=== PATIENT | female | born 1950 | race Caucasian/White ===

== ENCOUNTER 2022-03-03 13:39 | Observation (INO) ==
[2022-03-03] MEDS ORDERED: PIPERACILLIN SODIUM/TAZOBACTAM 3.375 GM in DEXTROSE 5% IN WATER 50 ML IV ONE (14:47)
[2022-03-03] MEDS ORDERED: morphine 4 MG/ML VIAL IV PRN (14:48)
[2022-03-03 14:56] LABS: POC Calcium, Ionized 1.2 (1.16-1.32); POC Creatinine 0.7 (0.6-1.2); POC Potassium 3.3 (3.3-5.1)
--- NOTE | 2022-03-03 15:10 | Emergency Department Note ---
Abdominal Pain HPI General Chief Complaint: Abdominal Pain Stated Complaint: Belly bloating Time Seen by Provider: 03/03/22 14:01 Source: patient Mode of arrival: ambulatory History of Present Illness HPI Narrative: 71-year-old female with known cholecystitis presents for worsening abdominal pain and bloating. She was seen by Dr. Jones in his office on 02/27 and they reviewed a HIDA scan which showed no uptake in the gallbladder consistent with cholecystitis. She was placed on ciprofloxacin twice daily and was scheduled for an outpatient laparoscopic cholecystectomy Thursday. Unfortunately, she has been experiencing more pain so came into the ER for urgent evaluation she denies fevers or chills. She denies nausea or vomiting. She endorses frequent urination but no dysuria or hematuria. She does have worsening pain radiating into her back and in the right upper quadrant. Related Data Home Medications Medication Instructions Recorded Confirmed atenolol 50 mg tablet (Tenormin) 50 mg PO BID 08/11/16 03/03/22 losartan 100 1 ea PO DAILY 08/11/16 03/03/22 mg-hydrochlorothiazide 25 mg tablet montelukast 10 mg tablet 10 mg PO DAILY 08/11/16 03/03/22 (Singulair) simvastatin 20 mg tablet 20 mg PO DAILY 08/11/16 03/03/22 albuterol sulfate 90 mcg/actuation 1 inh inhalation ONCE 02/27/22 03/03/22 aerosol inhaler biotin 1 mg capsule 1 mg PO QDAY 02/27/22 03/03/22 citalopram 20 mg tablet 20 mg PO QDAY 02/27/22 03/03/22 dicyclomine 20 mg tablet 20 mg PO .COMPLEX 02/27/22 03/03/22 diphenhydramine 25 See Rx Instructions PO QHS PRN 02/27/22 03/03/22 mg-acetaminophen 500 mg tablet Sleep (Tylenol PM Extra Strength) fexofenadine 180 mg tablet 180 mg PO QDAY 02/27/22 03/03/22 fluorouracil 5 % topical cream 1 applic topical BID 02/27/22 03/03/22 fluticasone propionate 50 1 spray intranasal QDAY 02/27/22 03/03/22 mcg/actuation nasal spray,suspension latanoprost 0.005 % eye drops 1 drp ophthalmic (eye) BID 02/27/22 03/03/22 lorazepam 0.5 mg tablet (Ativan) 0.5 mg PO QDAY PRN Anxiety 02/27/22 03/03/22 timolol maleate 0.5 % eye drops 1 drp ophthalmic (eye) QDAY 02/27/22 03/03/22 triamcinolone acetonide 0.1 % 1 applic topical QDAY PRN breakout 02/27/22 03/03/22 topical cream Previous Rx's Medication Instructions Recorded ciprofloxacin HCl 500 mg tablet 500 mg PO BID #20 tabs 02/27/22 ciprofloxacin HCl 500 mg tablet 500 mg PO BID Cholecystitis #20 02/27/22 tabs oxycodone-acetaminophen 10 mg-325 1 tab PO Q6H Abdominal pain #30 02/27/22 mg tablet tabs oxycodone-acetaminophen 10 mg-325 1 tab PO Q6H PRN pain #30 tabs 02/27/22 mg tablet Allergies Allergy/AdvReac Type Severity Reaction Status Date / Time adhesive tape Allergy Mild Hives Verified 03/03/22 14:16 Review of Systems ROS ROS Narrative: Narrative: All systems ED: reviewed and negative except as stated. [facility] Narrative Patient History Narrative: Narrative: Medical/Surgical/Family History All Active Problems (Updated 03/03/22 @ 21:07 by Brianne Lynch PA-C) Acute cholecystitis (Acute) Cholelithiasis and cholecystitis without obstruction (Acute) Allergic rhinitis (Chronic) Degenerative joint disease (Chronic) Obesity (Chronic) Depression (Chronic) Anxiety (Chronic) Asthma (Chronic) Insomnia (Chronic) Cervical lymphadenopathy (Chronic) Carcinoma, basal cell, skin (Chronic) Gallbladder attack (Chronic) Vomiting (Chronic) Sleep apnea (Chronic) IBS (irritable bowel syndrome) (Chronic) Irregular bowel habits (Chronic) High cholesterol (Chronic) High blood pressure (Chronic) Diarrhea (Chronic) Constipation (Chronic) Arthritis (Chronic) Abdominal pain (Chronic) Medical History Abdominal pain Allergic rhinitis Anxiety Arthritis Asthma Carcinoma, basal cell, skin Cervical lymphadenopathy Constipation Degenerative joint disease Depression Diarrhea Gallbladder attack High blood pressure High cholesterol History of trigger finger 2020 IBS (irritable bowel syndrome) Insomnia Irregular bowel habits Obesity Sleep apnea Vomiting Surgical History History of arthroplasty of right knee History of x2 History of hysterectomy (~1977) with bilateral salpingo-oophorectomy History of joint replacement (~2013) 2006 History of shoulder replacement (~1986) 2020 Family History Brother High blood pressure Anxiety Mother High blood pressure Gallbladder disease Malignant melanoma Thyroid disease Father Prostate cancer Family/Other Hodgkins lymphoma Social History Smoking Status: Never smoker Alcohol Intake Frequency: does not drink Substance Use: does not use Exam Narrative Narrative: General: AOx3, NAD, nontoxic appearing. Pleasant and conversant. HEENT: PERRL, EOMI, normocephalic. Respiratory: Lungs clear to auscultation bilaterally. No respiratory distress. Unlabored breathing. Heart: Regular rate and rhythm, no murmurs/clicks/rubs. Abdomen: Mildly distended, diffusely tender, no rebound noted. Hypoactive bowel tones, no peritoneal signs. Extremities: Warm and well perfused. No edema. DP 2+ bilaterally. No venous stasis. Neuro: No focal deficits. Cranial nerves II-XII grossly normal. Skin: Warm dry, no rashes or lesions, no cyanosis. Psych: Normal mood and affect Heme/Lymph: No abnormal bruising Course Course Course Narrative: 71-year-old female presents for known cholecystitis with outpatient cholecystectomy planned. Now with worsening abdominal pain and bloating. Reevaluation(s) Reevaluation #1: I discussed case with Dr. Jones. He does not feel that further imaging is warranted and would like to take her to the OR today if possible. I am waiting for the halfway house counselor to let me know if there is a bed available. In the meantime we will start her on IV Zosyn and obtain repeat labs. Blood cultures as well. Pain meds and IV fluids. Vital Signs Vital signs: Vital Signs Temperature 98.0 F 03/03/22 14:11 Pulse Rate 64 03/03/22 14:11 Respiratory Rate 16 03/03/22 14:11 Blood Pressure 156/79 03/03/22 14:11 Pulse Oximetry (%) 94 03/03/22 14:11 Oxygen Delivery Method 03/03/22 14:11 Temperature 98.0 F 03/03/22 14:11 Pulse Rate 70 03/03/22 20:01 Respiratory Rate 16 03/03/22 14:11 Blood Pressure 115/60 03/03/22 20:01 Pulse Oximetry (%) 91 03/03/22 20:01 Oxygen Delivery Method 03/03/22 14:11 MDM MDM Narrative Medical decision making narrative: Cholecystitis Dr. Jones has seen the patient and is planning for cholecystectomy tomorrow. The patient will remain in the ER overnight as a bed is not available. Lab Data Result diagrams: 03/03/22 14:50 03/03/22 14:50 Labs: Lab Results 03/03/22 03/03/22 03/03/22 Range/Units 14:50 14:50 14:51 WBC 5.7 (4.5-11.0) K/mcL RBC 4.03 (3.59-5.38) M/mcL Hgb 12.7 (11.2-15.7) g/dL Hct 37.4 (34.1-44.9) % POC Hct 36.0 (36-48) MCV 92.8 (80.0-100.0) fL MCH 31.5 (26.0-34.0) pg MCHC 34.0 (31.0-36.0) g/dL RDW 12.7 (11.5-14.5) % Plt Count 223 (140-440) K/mcL MPV 11.6 H (7.4-10.4) fL Immature Gran % (Auto) 0.2 (0.0-0.5) % Neut % (Auto) 41.6 (38.0-78.0) % Lymph % (Auto) 41.8 (15.5-49.0) % Hawkins % (Auto) 12.0 (1.0-12.0) % Eos % (Auto) 3.3 (0.0-7.0) % Baso % (Auto) 1.1 (0.0-2.0) % Lymph # (Auto) 2.38 (1.50-4.80) K/mcL Hawkins # (Auto) 0.68 (0.10-0.90) K/mcL Eos # (Auto) 0.19 (0.00-0.70) K/mcL Baso # (Auto) 0.06 (0.00-0.30) K/mcL Immature Gran # 0.01 (0.00-0.05) K/mcl Absolute Neutrophils 2.37 (1.80-8.00) K/mcL POC VBG pH (7.32-7.42) POC VBG pCO2 at Temp (41-51) POC VBG pO2 (25-40) POC VBG HCO3 (24-28) POC VBG Total CO2 (25-29) POC Venous O2 Sat (40-70) POC VBG Base Excess (-2-2) VBG Lactic Acid (0.5-2) POC Sodium 143 (133-145) Sodium 141 (133-145) mmol/L POC Potassium 3.3 (3.3-5.1) Potassium 3.5 (3.3-5.1) mmol/L POC Chloride 105 (96-108) Chloride 105 (96-108) mmol/L Carbon Dioxide 26 (22-30) mmol/L POC Total CO2 28.0 (22-30) Anion Gap 10.0 (8.0-16.0) POC BUN 9 (6-20) BUN 9 (8-23) mg/dL Creatinine 0.6 (0.6-1.1) mg/dL POC Creatinine 0.7 (0.6-1.2) GFR Calculation 92 Glucose 100 (70-105) mg/dL POC Glucose 99 (70-105) Calcium 9.2 (8.6-10.4) mg/dL POC WB Ioniz Calcium 1.20 (1.16-1.32) Total Bilirubin 0.4 (0.1-1.0) mg/dL AST 19 (<32) U/L ALT 20 (<40) U/L Alkaline Phosphatase 55 (39-117) U/L Total Protein 6.6 (5.9-8.4) gm/dL Albumin 4.4 (3.2-5.2) gm/dL Globulin 2.2 (2.2-3.7) gm/dL Albumin/Globulin Ratio 2.0 (1.0-2.3) 03/03/22 Range/Units 14:55 WBC (4.5-11.0) K/mcL RBC (3.59-5.38) M/mcL Hgb (11.2-15.7) g/dL Hct (34.1-44.9) % POC Hct (36-48) MCV (80.0-100.0) fL MCH (26.0-34.0) pg MCHC (31.0-36.0) g/dL RDW (11.5-14.5) % Plt Count (140-440) K/mcL MPV (7.4-10.4) fL Immature Gran % (Auto) (0.0-0.5) % Neut % (Auto) (38.0-78.0) % Lymph % (Auto) (15.5-49.0) % Hawkins % (Auto) (1.0-12.0) % Eos % (Auto) (0.0-7.0) % Baso % (Auto) (0.0-2.0) % Lymph # (Auto) (1.50-4.80) K/mcL Hawkins # (Auto) (0.10-0.90) K/mcL Eos # (Auto) (0.00-0.70) K/mcL Baso # (Auto) (0.00-0.30) K/mcL Immature Gran # (0.00-0.05) K/mcl Absolute Neutrophils (1.80-8.00) K/mcL POC VBG pH 7.40 (7.32-7.42) POC VBG pCO2 at Temp 46.5 (41-51) POC VBG pO2 48 H (25-40) POC VBG HCO3 29.0 H (24-28) POC VBG Total CO2 30.0 H (25-29) POC Venous O2 Sat 83.0 H (40-70) POC VBG Base Excess 4.0 H* (-2-2) VBG Lactic Acid 0.9 (0.5-2) POC Sodium (133-145) Sodium (133-145) mmol/L POC Potassium (3.3-5.1) Potassium (3.3-5.1) mmol/L POC Chloride (96-108) Chloride (96-108) mmol/L Carbon Dioxide (22-30) mmol/L POC Total CO2 (22-30) Anion Gap (8.0-16.0) POC BUN (6-20) BUN (8-23) mg/dL Creatinine (0.6-1.1) mg/dL POC Creatinine (0.6-1.2) GFR Calculation Glucose (70-105) mg/dL POC Glucose (70-105) Calcium (8.6-10.4) mg/dL POC WB Ioniz Calcium (1.16-1.32) Total Bilirubin (0.1-1.0) mg/dL AST (<32) U/L ALT (<40) U/L Alkaline Phosphatase (39-117) U/L Total Protein (5.9-8.4) gm/dL Albumin (3.2-5.2) gm/dL Globulin (2.2-3.7) gm/dL Albumin/Globulin Ratio (1.0-2.3) Discharge Plan Patient/Caregiver Discharge Instructions Pt seen by [facility] [employer]INER AND ADJUSTER/PA only: Yes Clinical Impression: Acute cholecystitis Patient Disposition: Still a Patient Follow up with: Stanford Perez MD [Primary Care Provider] - Prescriptions: No Action albuterol sulfate 90 mcg/actuation HFA aerosol inhaler 1 inh inhalation ONCE biotin 1 mg capsule 1 mg PO QDAY Rx Instructions: orally daily; dicyclomine 20 mg tablet 20 mg PO .COMPLEX Rx Instructions: 20 mg orally; diphenhydramine-acetaminophen [Tylenol PM Extra Strength] 25-500 mg tablet See Rx Instructions PO QHS PRN (Reason: Sleep) Rx Instructions: orally every day at bedtime PRN; fluorouracil 5 % cream 1 applic topical BID fexofenadine 180 mg tablet 180 mg PO QDAY fluticasone propionate 50 mcg/actuation spray,suspension 1 spray intranasal QDAY Rx Instructions: administer into each nostril lorazepam [Ativan] 0.5 mg tablet 0.5 mg PO QDAY PRN (Reason: Anxiety) latanoprost 0.005 % drops 1 drp ophthalmic (eye) BID Label Comments: [NO ORIGINAL SIG] triamcinolone acetonide 0.1 % cream 1 applic topical QDAY PRN (Reason: breakout) Label Comments: [NO ORIGINAL SIG] citalopram 20 mg tablet 20 mg PO QDAY Label Comments: [NO ORIGINAL SIG] timolol maleate 0.5 % drops 1 drp ophthalmic (eye) QDAY Label Comments: [NO ORIGINAL SIG] ciprofloxacin HCl 500 mg tablet 500 mg PO BID Qty: 20 0RF oxycodone-acetaminophen 10-325 mg tablet 1 tab PO Q6H Qty: 30 0RF ciprofloxacin HCl 500 mg tablet 500 mg PO BID Qty: 20 0RF oxycodone-acetaminophen 10-325 mg tablet 1 tab PO Q6H PRN (Reason: pain) Qty: 30 0RF losartan-hydrochlorothiazide 1 EACH tablet 1 ea PO DAILY simvastatin 20 MG tablet 20 mg PO DAILY montelukast [Singulair] 10 MG tablet 10 mg PO DAILY atenolol [Tenormin] 50 MG tablet 50 mg PO BID
[2022-03-03 15:38] LABS: Basophils # (Auto) 0.06 K/mcL (0.00-0.30); Basophils % (Auto) 1.1 % (0.0-2.0); Eosinophils # (Auto) 0.19 K/mcL (0.00-0.70); Eosinophils % (Auto) 3.3 % (0.0-7.0); Hematocrit 37.4 % (34.1-44.9); Hemoglobin 12.7 g/dL (11.2-15.7); Lymphocytes # (Auto) 2.38 K/mcL (1.50-4.80); Lymphocytes % (Auto) 41.8 % (15.5-49.0); Mean Cell Volume 92.8 fL (80.0-100.0); Mean Platelet Volume 11.6 fL (7.4-10.4); Monocytes # (Auto) 0.68 K/mcL (0.10-0.90); Neutrophils % (Auto) 41.6 % (38.0-78.0); Platelet Count 223 K/mcL (140-440); RBC 4.03 M/mcL (3.59-5.38); Red Cell Distribution Width 12.7 % (11.5-14.5); WBC 5.7 K/mcL (4.5-11.0)
[2022-03-03 16:16] LABS: ALT/SGPT 20 U/L (<40); AST/SGOT 19 U/L (<32); Albumin 4.4 gm/dL (3.2-5.2); Alkaline Phosphatase 55 U/L (39-117); Bilirubin,Total 0.4 mg/dL (0.1-1.0); Blood Urea Nitrogen 9 mg/dL (8-23); Calcium 9.2 mg/dL (8.6-10.4); Carbon Dioxide 26 mmol/L (22-30); Chloride 105 mmol/L (96-108); Globulin 2.2 gm/dL (2.2-3.7); Glomerular Filtration Rate 92; Glucose 100 mg/dL (70-105)
[2022-03-03] MEDS: 0.9 % SODIUM CHLORIDE 1,000 ML IV SCH (17:48)
[2022-03-03] MEDS: HYDROmorphone 1 MG/ML SYRINGE IV PRN ×2 (18:48→23:30)
[2022-03-03] MEDS: PIPERACILLIN SODIUM/TAZOBACTAM 3.375 GM in DEXTROSE 5% IN WATER 50 ML IV SCH (19:10)
[2022-03-03] MEDS: ATENOLOL 50 MG TABLET PO SCH (21:32)
[2022-03-03] MEDS: diphenhydrAMINE 50 MG/ML VIAL IV SCH (22:48)
[2022-03-04] MEDS: PIPERACILLIN SODIUM/TAZOBACTAM 3.375 GM in DEXTROSE 5% IN WATER 50 ML IV SCH ×5 (00:22→23:40)
[2022-03-04] MEDS: HYDROmorphone 1 MG/ML SYRINGE IV PRN ×2 (07:10→14:14)
[2022-03-04] MEDS ORDERED: PROPOFOL 200 MG/20 ML VIAL IV ONE (07:27)
[2022-03-04] MEDS ORDERED: FAMOTIDINE/PF 20 MG/2 ML VIAL IV ONE (07:27)
[2022-03-04] MEDS ORDERED: SUGAMMADEX SODIUM 200 MG/2 ML VIAL IV ONE (07:27)
[2022-03-04] MEDS ORDERED: LIDOCAINE HCL/PF 100 MG/5 ML SYRINGE IV ONE (07:27)
[2022-03-04] MEDS ORDERED: ROCURONIUM 10 MG/ML ML IV ONE (07:27)
[2022-03-04] MEDS ORDERED: fentaNYL 100 MCG/2 ML VIAL IV ONE (07:27)
[2022-03-04] MEDS ORDERED: GLYCOPYRROLATE 0.2 MG/ML VIAL IV ONE (07:27)
[2022-03-04] MEDS ORDERED: MIDAZOLAM 2 MG/2 ML VIAL ONE (07:27)
[2022-03-04] MEDS ORDERED: KETOROLAC 30 MG/ML VIAL ONE (07:27)
[2022-03-04] MEDS ORDERED: ONDANSETRON 4 MG/2 ML VIAL ONE (07:27)
[2022-03-04] MEDS: 0.9 % SODIUM CHLORIDE 1,000 ML IV SCH ×3 (07:53→23:41)
[2022-03-04] MEDS ORDERED: ONDANSETRON 4 MG/2 ML VIAL IV PRN (08:30)
[2022-03-04] MEDS: ATENOLOL 50 MG TABLET PO SCH ×2 (09:50→20:44)
[2022-03-04] MEDS: DOCUSATE SODIUM 100 MG CAPSULE PO SCH ×2 (09:50→20:45)
[2022-03-04] MEDS: CITALOPRAM 20 MG TABLET PO SCH (09:50)
[2022-03-04] MEDS: BUTALB/ACETAMINOPHEN/CAFFEINE 1 TABLET PO PRN ×2 (11:01→20:44)
--- NOTE | 2022-03-04 14:12 | General Surg History&Physical ---
HPI History of Present Illness Patient information: Note initiated : 03/04/22 at 1:58 pm Service Date, if different from initiated Date: [] Patient: Melissa Ramey a 71 y/o F admitted on 03/04/22 for Belly bloating. Chief Complaint: [] Chief complaint: Acute cholecystitis with cholelithiasis History of present illness: Ms. Ramey is a 71 year old F with known gallstone disease. Patient was seen in the office on 28 February 2020 with a 3-month history of right upper quadrant pain radiating through to her back. She had associated nausea and vomiting. Most of her symptoms occurred after eating. She also had multiple episodes of diarrhea. She was noted to have multiple gallstones on ultrasound and no gallbladder activity on HIDA scan. She was felt to have acute and chronic cholecystitis and was scheduled for laparoscopic cholecystectomy on 05 March 2022. She was started on ciprofloxacin but her symptoms had rapidly increased and she presented to the emergency room last evening with more severe pain with nausea and vomiting.. She was to be admitted but there were no beds so she was monitored and treated overnight in the emergency room and admitted today after a bed became available. She states that her pain is improved with the analgesia. She has had less nausea but has received Zofran and IV. She still has significant right upper quadrant tenderness. She will be continued on IV antibiotics analgesics and antiemetics. She will have cholecystectomy tomorrow when space is available. Constitutional Constitutional: Present chills, excessive sweating, night sweats, weakness and weight loss EENT Eyes: Absent blurry vision, diplopia, irritation or loss of vision Nose, mouth and throat: Absent dizziness, headache(s), neck pain or vertigo Cardiovascular Cardiovascular: Present dyspnea; Absent chest pain, irregular heart rhythm, leg edema or rapid heart rate Respiratory Respiratory: Present cough, dyspnea on exertion and wheezing Gastrointestinal Gastrointestinal: Present abdominal pain, constipation, diarrhea, dyspepsia, heartburn, nausea and vomiting Genitourinary Genitourinary: Absent breast change in shape, difficulty voiding, urinary frequency or urinary urgency Musculoskeletal Musculoskeletal: Absent numbness, radiating pain into limb or tingling Integumentary Integumentary: Absent changing lesions, new lesions, pruritus or unusual bruising Neurological Neurological: Present dizziness and headache(s) Psychiatric Psychiatric: Present anxiety and depression Endocrine Endocrine: Present excessive sweating and heat intolerance Hematologic/Lymphatic Hematologic/Lymphatic: Absent easy bleeding, easy bruising or lymphadenopathy Allergic/Immunologic Allergic/Immunologic: Absent tongue swelling, throat swelling, itchy eyes, uticaria, wheezing or lip swelling PFSH PFSH All Active Problems Acute cholecystitis (Acute) Cholelithiasis and cholecystitis without obstruction (Acute) Allergic rhinitis (Chronic) Degenerative joint disease (Chronic) Obesity (Chronic) Depression (Chronic) Anxiety (Chronic) Asthma (Chronic) Insomnia (Chronic) Cervical lymphadenopathy (Chronic) Carcinoma, basal cell, skin (Chronic) Gallbladder attack (Chronic) Vomiting (Chronic) Sleep apnea (Chronic) IBS (irritable bowel syndrome) (Chronic) Irregular bowel habits (Chronic) High cholesterol (Chronic) High blood pressure (Chronic) Diarrhea (Chronic) Constipation (Chronic) Arthritis (Chronic) Abdominal pain (Chronic) Medical History Abdominal pain Allergic rhinitis Anxiety Arthritis Asthma Carcinoma, basal cell, skin Cervical lymphadenopathy Constipation Degenerative joint disease Depression Diarrhea Gallbladder attack High blood pressure High cholesterol History of trigger finger 2019 IBS (irritable bowel syndrome) Insomnia Irregular bowel habits Obesity Sleep apnea Vomiting Surgical History History of arthroplasty of right knee History of x2 History of hysterectomy (~1977) with bilateral salpingo-oophorectomy History of joint replacement (~2013) 2006 History of shoulder replacement (~1986) 2020 Family History Brother High blood pressure Anxiety Mother High blood pressure Gallbladder disease Malignant melanoma Thyroid disease Father Prostate cancer Family/Other Hodgkins lymphoma Social History occupational 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[employer] physical activity: walking frequency: 3-4 times per week smoking status: Never smoker alcohol intake frequency: does not drink substance use type: does not use seatbelt use: always MEDS/ALLERGIES Home Medications and Allergies Home Medications Medication Instructions Recorded Confirmed Type atenolol 50 mg tablet (Tenormin) 50 mg PO BID 08/11/16 03/03/22 History losartan 100 1 ea PO DAILY 08/11/16 03/03/22 History mg-hydrochlorothiazide 25 mg tablet montelukast 10 mg tablet 10 mg PO DAILY 08/11/16 03/03/22 History (Singulair) simvastatin 20 mg tablet 20 mg PO DAILY 08/11/16 03/03/22 History albuterol sulfate 90 mcg/actuation 1 inh inhalation ONCE 02/27/22 03/03/22 History aerosol inhaler biotin 1 mg capsule 1 mg PO QDAY 02/27/22 03/03/22 History ciprofloxacin HCl 500 mg tablet 500 mg PO BID #20 tabs 02/27/22 03/03/22 Rx ciprofloxacin HCl 500 mg tablet 500 mg PO BID Cholecystitis #20 02/27/22 03/03/22 Rx tabs citalopram 20 mg tablet 20 mg PO QDAY 02/27/22 03/03/22 History dicyclomine 20 mg tablet 20 mg PO .COMPLEX 02/27/22 03/03/22 History diphenhydramine 25 See Rx Instructions PO QHS PRN 02/27/22 03/03/22 History mg-acetaminophen 500 mg tablet Sleep (Tylenol PM Extra Strength) fexofenadine 180 mg tablet 180 mg PO QDAY 02/27/22 03/03/22 History fluorouracil 5 % topical cream 1 applic topical BID 02/27/22 03/03/22 History fluticasone propionate 50 1 spray intranasal QDAY 02/27/22 03/03/22 History mcg/actuation nasal spray,suspension latanoprost 0.005 % eye drops 1 drp ophthalmic (eye) BID 02/27/22 03/03/22 History lorazepam 0.5 mg tablet (Ativan) 0.5 mg PO QDAY PRN Anxiety 02/27/22 03/03/22 History oxycodone-acetaminophen 10 mg-325 1 tab PO Q6H Abdominal pain #30 02/27/22 03/03/22 Rx mg tablet tabs oxycodone-acetaminophen 10 mg-325 1 tab PO Q6H PRN pain #30 tabs 02/27/22 03/03/22 Rx mg tablet timolol maleate 0.5 % eye drops 1 drp ophthalmic (eye) QDAY 02/27/22 03/03/22 History triamcinolone acetonide 0.1 % 1 applic topical QDAY PRN breakout 02/27/22 03/03/22 History topical cream Allergies Allergy/AdvReac Type Severity Reaction Status Date / Time adhesive tape Allergy Mild Hives Verified 03/03/22 14:16 Physical Examination Vital Signs Vital signs: Temp Pulse Resp BP Pulse Ox O2 Del Method 98.8 F 58 L 16 151/76 97 03/04/22 12:00 03/04/22 10:05 03/04/22 10:05 03/04/22 10:05 03/04/22 10:05 03/04/22 10:05 General physical appearance General physical exam: well developed, well nourished, moderate distress and severe pain Eyes Eye exam: PERRL and normal ocular movement ENT ENT exam: normal mucosa and decreased hearing (Severe hearing loss bilaterally) Head Head exam IM: Present atraumatic, normal inspection and normocephalic Neck Neck exam: no masses, no bruits, trachea midline, no lymphadenopathy and no venous distension Cardiovascular Cardiovascular exam IM: Present normal rate and rhythm, RRR, +S1 and +S2; Absent JVD Respiratory Respiratory exam: normal expansion, normal respiratory effort and clear to auscultation Abdomen Abdomen: Present tender (Right upper quad and epigastric), guarding, rebound and distended Integumentary Integumentary: Present no rash, no growths and no abnormal pigmentation Neurologic Neurologic: Present normal sensation Musculoskeletal Musculoskeletal: Present normal gait and normal posture Psychiatric Psychiatric: Present oriented to time, oriented to person, oriented to place, speech is normal and memory intact Results Labs Result diagrams: 03/03/22 14:50 03/03/22 14:50 Labs: Abnormal lab results 03/03/22 03/03/22 Range/Units 14:50 14:55 MPV 11.6 H (7.4-10.4) fL POC VBG pO2 48 H (25-40) POC VBG HCO3 29.0 H (24-28) POC VBG Total CO2 30.0 H (25-29) POC Venous O2 Sat 83.0 H (40-70) POC VBG Base Excess 4.0 H* (-2-2) Diabetes panel 03/03/22 Range/Units 14:50 Sodium 141 (133-145) mmol/L Potassium 3.5 (3.3-5.1) mmol/L Chloride 105 (96-108) mmol/L Carbon Dioxide 26 (22-30) mmol/L BUN 9 (8-23) mg/dL Creatinine 0.6 (0.6-1.1) mg/dL Glucose 100 (70-105) mg/dL Calcium 9.2 (8.6-10.4) mg/dL AST 19 (<32) U/L ALT 20 (<40) U/L Alkaline Phosphatase 55 (39-117) U/L Total Protein 6.6 (5.9-8.4) gm/dL Albumin 4.4 (3.2-5.2) gm/dL Calcium panel 03/03/22 Range/Units 14:50 Calcium 9.2 (8.6-10.4) mg/dL Albumin 4.4 (3.2-5.2) gm/dL Pituitary panel 03/03/22 Range/Units 14:50 Sodium 141 (133-145) mmol/L Potassium 3.5 (3.3-5.1) mmol/L Chloride 105 (96-108) mmol/L Carbon Dioxide 26 (22-30) mmol/L BUN 9 (8-23) mg/dL Creatinine 0.6 (0.6-1.1) mg/dL Glucose 100 (70-105) mg/dL Calcium 9.2 (8.6-10.4) mg/dL Adrenal panel 03/03/22 Range/Units 14:50 Sodium 141 (133-145) mmol/L Potassium 3.5 (3.3-5.1) mmol/L Chloride 105 (96-108) mmol/L Carbon Dioxide 26 (22-30) mmol/L BUN 9 (8-23) mg/dL Creatinine 0.6 (0.6-1.1) mg/dL Glucose 100 (70-105) mg/dL Calcium 9.2 (8.6-10.4) mg/dL Total Bilirubin 0.4 (0.1-1.0) mg/dL AST 19 (<32) U/L ALT 20 (<40) U/L Alkaline Phosphatase 55 (39-117) U/L Total Protein 6.6 (5.9-8.4) gm/dL Albumin 4.4 (3.2-5.2) gm/dL All other labs normal. A/P Assessment and plan (1) Cholelithiasis and cholecystitis without obstruction: Status: Acute (2) Obesity: Status: Chronic (3) Sleep apnea: Status: Chronic (4) IBS (irritable bowel syndrome): Status: Chronic (5) High blood pressure: Status: Chronic (6) Anxiety: Status: Chronic (7) Depression: Status: Chronic Plan Current 10-year IV fluids and IV antibiotics May have clear liquids today N.p.o. after midnight Laparoscopic cholecystectomy tomorrow Sepsis Sepsis Identified: No Time Spent With Patient Time: Total time spent is greater than 50% in coordination of care (as documented) at patient's floor/unit and/or counseling patient:
[2022-03-04] MEDS: 0.9 % SODIUM CHLORIDE 10 ML SYRINGE IV SCH ×2 (14:19→20:36)
[2022-03-04] MEDS: SENNOSIDES 1 TABLET PO SCH (20:45)
[2022-03-04] MEDS: diphenhydrAMINE 50 MG/ML VIAL IV SCH (23:41)
[2022-03-05] MEDS ORDERED: SCOPOLAMINE 1 PATCH PATCH TOPICAL PRN (05:00)
[2022-03-05] MEDS ORDERED: IPRATROPIUM/ALBUTEROL 3 ML AMPUL.NEB NEB PRN (05:00)
[2022-03-05] MEDS: PIPERACILLIN SODIUM/TAZOBACTAM 3.375 GM in DEXTROSE 5% IN WATER 50 ML IV SCH ×3 (05:43→18:42)
[2022-03-05] MEDS: 0.9 % SODIUM CHLORIDE 10 ML SYRINGE IV SCH ×3 (05:43→21:32)
[2022-03-05 06:47] LABS: Basophils # (Auto) 0.04 K/mcL (0.00-0.30); Basophils % (Auto) 0.7 % (0.0-2.0); Eosinophils # (Auto) 0.21 K/mcL (0.00-0.70); Eosinophils % (Auto) 3.7 % (0.0-7.0); Hematocrit 38.2 % (34.1-44.9); Hemoglobin 12.6 g/dL (11.2-15.7); Lymphocytes # (Auto) 1.75 K/mcL (1.50-4.80); Lymphocytes % (Auto) 30.7 % (15.5-49.0); Mean Cell Volume 94.8 fL (80.0-100.0); Mean Platelet Volume 11.2 fL (7.4-10.4); Monocytes % (Auto) 10.5 % (1.0-12.0); Neutrophils % (Auto) 54.2 % (38.0-78.0); Platelet Count 197 K/mcL (140-440); RBC 4.03 M/mcL (3.59-5.38); Red Cell Distribution Width 12.5 % (11.5-14.5); WBC 5.7 K/mcL (4.5-11.0)
[2022-03-05 07:06] LABS: ALT/SGPT 18 U/L (<40); AST/SGOT 17 U/L (<32); Albumin 4.1 gm/dL (3.2-5.2); Alkaline Phosphatase 59 U/L (39-117); Bilirubin,Direct < 0.2 mg/dL (0-0.3); Bilirubin,Total 0.5 mg/dL (0.1-1.0); Blood Urea Nitrogen 6 mg/dL (8-23); Carbon Dioxide 24 mmol/L (22-30); Chloride 105 mmol/L (96-108); Globulin 2.1 gm/dL (2.2-3.7); Glomerular Filtration Rate 92; Glucose 112 mg/dL (70-105); Lactate Dehydrogenase 187 U/L (135-225); Phosphorous 3.3 mg/dL (2.5-4.5); Triglycerides 177 mg/dL (<150); Uric Acid 3.8 mg/dL (2.5-8.0)
[2022-03-05] MEDS ORDERED: LACTATED RINGERS 250 ML IV PRN (07:48)
[2022-03-05] MEDS ORDERED: MEPERIDINE 25 MG/ML VIAL IV PRN (07:48)
[2022-03-05] MEDS ORDERED: METHOCARBAMOL 1,000 MG/10 ML VIAL IV PRN (07:48)
[2022-03-05] MEDS ORDERED: ACETAMINOPHEN 1,000 MG/100 ML BAG IV ONE (07:48)
[2022-03-05] MEDS ORDERED: LABETALOL 5 MG/ML ML IV PRN (07:48)
[2022-03-05] MEDS ORDERED: PROMETHAZINE 25 MG/ML VIAL IV PRN (07:48)
[2022-03-05] MEDS ORDERED: ATROPINE SULFATE 0.4 MG/ML VIAL IV PRN (07:48)
[2022-03-05] MEDS ORDERED: LACTATED RINGERS 1,000 ML IV SCH (08:00)
--- NOTE | 2022-03-05 08:44 | Brief Operative Note ---
Brief Operative Note Date of procedure: 03/05/22 Pre-op diagnosis: ACUTE CHOLECYSTITIS AND CHOLELITHIASIS Post-op diagnosis: other (ACUTE CHOLECYSTITIS WITH EMPYEMA AND CHOLELITHIASIS) Procedure: LAPAROSCOPIC CHOLECYSTECTOMY Grafts/Implants: No Findings: ACUTE SEVERE INFLAMMATION OF GALLBLADDER WITH EMPYEMA AND MULTIPLE STONES OF VARIED SIZES;CYSTIC DUCT OBSTRUCTION Complications: none Surgeon: Hoa Jones Estimated blood loss (cc): 50 Specimens Removed/Pathology: other (GALLBLADDER AND STONES) Condition: stable Disposition: PACU
[2022-03-05] MEDS ORDERED: LORazepam 0.5 MG TABLET PO PRN (09:00)
[2022-03-05] MEDS: fentaNYL 100 MCG/2 ML VIAL IV PRN ×4 (09:29→09:45)
[2022-03-05] MEDS ORDERED: oxyCODONE/APAP 10/325MG TABLET PO PRN (10:13)
[2022-03-05] MEDS: 0.9 % SODIUM CHLORIDE 1,000 ML IV SCH (10:20)
[2022-03-05] MEDS: HYDROmorphone 1 MG/ML SYRINGE IV PRN ×5 (10:20→23:06)
[2022-03-05] MEDS: LOSARTAN 50 MG TABLET PO SCH (13:43)
[2022-03-05] MEDS: DOCUSATE SODIUM 100 MG CAPSULE PO SCH ×2 (13:43→21:30)
[2022-03-05] MEDS: FEXOFENADINE 180 MG TABLET PO SCH (13:43)
[2022-03-05] MEDS: MONTELUKAST 10 MG TABLET PO SCH (13:43)
[2022-03-05] MEDS: CITALOPRAM 20 MG TABLET PO SCH (13:44)
[2022-03-05] MEDS: HYDROCHLOROTHIAZIDE 25 MG TABLET PO SCH (13:44)
[2022-03-05] MEDS: ATENOLOL 50 MG TABLET PO SCH ×4 (13:45→21:32)
[2022-03-05] MEDS: FLUTICASONE PROPIONATE SPRAY.NAS NS SCH (14:02)
[2022-03-05] MEDS: TIMOLOL 0.5% OPHTH DROPS BOTTLE 5ML OU SCH (14:03)
[2022-03-05] MEDS: LATANOPROST OPHTH DROPS 2.5ML BOTTLE OU SCH ×2 (14:03→21:31)
[2022-03-05] MEDS: SENNOSIDES 1 TABLET PO SCH (21:30)
[2022-03-06] MEDS: PIPERACILLIN SODIUM/TAZOBACTAM 3.375 GM in DEXTROSE 5% IN WATER 50 ML IV SCH ×4 (00:26→17:36)
[2022-03-06] MEDS: diphenhydrAMINE 50 MG/ML VIAL IV SCH (00:31)
[2022-03-06] MEDS: 0.9 % SODIUM CHLORIDE 10 ML SYRINGE IV SCH ×3 (00:32→17:02)
[2022-03-06] MEDS: 0.9 % SODIUM CHLORIDE 1,000 ML IV SCH ×2 (01:38→10:16)
[2022-03-06] MEDS: BUTALB/ACETAMINOPHEN/CAFFEINE 1 TABLET PO PRN ×3 (05:47→17:01)
[2022-03-06 06:29] LABS: Basophils # (Auto) 0.03 K/mcL (0.00-0.30); Basophils % (Auto) 0.3 % (0.0-2.0); Eosinophils # (Auto) 0 K/mcL (0.00-0.70); Eosinophils % (Auto) 0 % (0.0-7.0); Hematocrit 33.6 % (34.1-44.9); Hemoglobin 11.6 g/dL (11.2-15.7); Lymphocytes # (Auto) 1.59 K/mcL (1.50-4.80); Lymphocytes % (Auto) 14.1 % (15.5-49.0); Mean Cell Volume 91.8 fL (80.0-100.0); Mean Corpuscular HGB Conc 34.5 g/dL (31.0-36.0); Mean Platelet Volume 11.4 fL (7.4-10.4); Monocytes # (Auto) 1.04 K/mcL (0.10-0.90); Monocytes % (Auto) 9.2 % (1.0-12.0); Platelet Count 208 K/mcL (140-440); RBC 3.66 M/mcL (3.59-5.38); Red Cell Distribution Width 12.1 % (11.5-14.5); WBC 11.3 K/mcL (4.5-11.0)
[2022-03-06 06:56] LABS: ALT/SGPT 52 U/L (<40); AST/SGOT 46 U/L (<32); Albumin 3.8 gm/dL (3.2-5.2); Albumin/Globulin Ratio 1.8 (1.0-2.3); Alkaline Phosphatase 50 U/L (39-117); Bilirubin,Direct < 0.2 mg/dL (0-0.3); Bilirubin,Total 0.4 mg/dL (0.1-1.0); Blood Urea Nitrogen 13 mg/dL (8-23); Calcium 8.8 mg/dL (8.6-10.4); Carbon Dioxide 25 mmol/L (22-30); Chloride 101 mmol/L (96-108); Globulin 2.1 gm/dL (2.2-3.7); Glomerular Filtration Rate 74; Glucose 146 mg/dL (70-105); Lactate Dehydrogenase 214 U/L (135-225); Phosphorous 3.3 mg/dL (2.5-4.5); Triglycerides 117 mg/dL (<150); Uric Acid 4.1 mg/dL (2.5-8.0)
[2022-03-06] MEDS: ATENOLOL 50 MG TABLET PO SCH ×2 (09:40→10:09)
[2022-03-06] MEDS: CITALOPRAM 20 MG TABLET PO SCH (09:40)
[2022-03-06] MEDS: MONTELUKAST 10 MG TABLET PO SCH (09:40)
[2022-03-06] MEDS: LOSARTAN 50 MG TABLET PO SCH (09:40)
[2022-03-06] MEDS: HYDROCHLOROTHIAZIDE 25 MG TABLET PO SCH (09:40)
[2022-03-06] MEDS: FEXOFENADINE 180 MG TABLET PO SCH (09:40)
[2022-03-06] MEDS: DOCUSATE SODIUM 100 MG CAPSULE PO SCH (09:40)
[2022-03-06] MEDS ORDERED: FLU VACC QS2022-23(6MOS UP)/PF 60 MCG/0.5 ML SYRINGE IM ONE (10:00)
[2022-03-06] MEDS: FLUTICASONE PROPIONATE SPRAY.NAS NS SCH (10:15)
[2022-03-06] MEDS: TIMOLOL 0.5% OPHTH DROPS BOTTLE 5ML OU SCH (12:22)
[2022-03-06] MEDS: LATANOPROST OPHTH DROPS 2.5ML BOTTLE OU SCH (12:23)
--- NOTE | 2022-03-06 15:13 | Discharge Summary ---
Discharge Provider Provider IMPORTANT FOLLOW-UP INFORMATION FOR PCP: Patient information: Note initiated : 03/06/22 at 3:03 pm Service Date, if different from initiated Date: [] Patient: Melissa Ramey 71 y/o F admitted on 03/04/22 for Belly bloating. Chief Complaint: [] Date of admission: 03/04/22 10:05 Discharge date: 03/06/22 Primary care physician: Stanford Perez MD Admitting clinician: Hoa Jones Attending physician on admission: Hoa Jones Consults: 03/03/22 Consult to Physician [CONS] Stat Comment: Consulting Provider: Hoa Jones Reason For Exam: Physician to Consult Attending physician on discharge: Hoa Jones Discharging clinician: Hoa Jones COURSE Hospital Course Hospital course: 71-year-old female with documented evidence of acute cholecystitis who presented to the emergency room on the evening of March 06 with acute severe abd ominal pain and nausea. She was admitted to observation and underwent cholecystectomy on 05 March 2020. She was noted to have empyema of the gallbladder with severe inflammation and multiple gallstones. Her surgery progressed uneventfully. She has done well and is now asymptomatic except for mild incisional discomfort. She is stable for discharge home. Discharge diagnosis: Acute cholecystitis with cholelithiasis Secondary discharge diagnosis: Depression with anxiety Obstructive sleep apnea Hypertension Reason for admission: Acute cholecystitis Procedures: Laparoscopic cholecystectomy Pertinent studies/significant findings: None Complications: None Time Spent with Patient Time attestation: Total time spent providing and/or coordinating discharge services: Time spent: Less than 30 minutes Physical Examination Vital Signs Vital signs: Temp Pulse Resp BP Pulse Ox O2 Del Method O2 Flow Rate 98.5 F 61 14 129/61 94 0 03/06/22 12:00 03/06/22 12:00 03/06/22 12:00 03/06/22 12:00 03/06/22 12:00 03/06/22 12:00 03/05/22 20:00 General physical appearance General physical exam: well developed, well nourished, no distress and moderate pain Eyes Eye exam: PERRL and normal ocular movement ENT ENT exam: normal mucosa and decreased hearing (Severe bilateral hearing loss) Head Head exam IM: Present atraumatic, normal inspection and normocephalic Neck Neck exam: no masses, no bruits, trachea midline, no lymphadenopathy and no venous distension Cardiovascular Cardiovascular exam IM: Present normal rate and rhythm, RRR, +S1 and +S2; Absent JVD Respiratory Respiratory exam: normal expansion, normal respiratory effort and clear to auscultation Abdomen Abdomen: Present tender (My old incisional tenderness) and surgical scars ( port sites are unremarkable; drain with bloody drainage); Absent masses or distended Integumentary Integumentary: Present no rash, no growths and no abnormal pigmentation Neurologic Neurologic: Present normal coordination and normal sensation Musculoskeletal Musculoskeletal: Present normal gait and normal posture Psychiatric Psychiatric: Present oriented to time, oriented to person, oriented to place, speech is normal and memory intact Discharge Plan Patient/Caregiver Discharge Instructions Activity: increase activity as tolerated Diet: Regular Diet and Low Fat Instructions: Soft Diet (GEN), Laparoscopic Cholecystectomy (DC) Prescriptions: New oxycodone-acetaminophen [Endocet] 10-325 mg tablet 1 tab PO Q4H PRN (Reason: Pain) Qty: 20 0RF Continued albuterol sulfate 90 mcg/actuation HFA aerosol inhaler 1 inh inhalation ONCE biotin 1 mg capsule 1 mg PO QDAY Rx Instructions: orally daily; dicyclomine 20 mg tablet 20 mg PO .COMPLEX Rx Instructions: 20 mg orally; diphenhydramine-acetaminophen [Tylenol PM Extra Strength] 25-500 mg tablet See Rx Instructions PO QHS PRN (Reason: Sleep) Rx Instructions: orally every day at bedtime PRN; fluorouracil 5 % cream 1 applic topical BID fexofenadine 180 mg tablet 180 mg PO QDAY fluticasone propionate 50 mcg/actuation spray,suspension 1 spray intranasal QDAY Rx Instructions: administer into each nostril lorazepam [Ativan] 0.5 mg tablet 0.5 mg PO QDAY PRN (Reason: Anxiety) latanoprost 0.005 % drops 1 drp ophthalmic (eye) BID Label Comments: [NO ORIGINAL SIG] triamcinolone acetonide 0.1 % cream 1 applic topical QDAY PRN (Reason: breakout) Label Comments: [NO ORIGINAL SIG] citalopram 20 mg tablet 20 mg PO QDAY Label Comments: [NO ORIGINAL SIG] timolol maleate 0.5 % drops 1 drp ophthalmic (eye) QDAY Label Comments: [NO ORIGINAL SIG] oxycodone-acetaminophen 10-325 mg tablet 1 tab PO Q6H Qty: 30 0RF ciprofloxacin HCl 500 mg tablet 500 mg PO BID Qty: 20 0RF oxycodone-acetaminophen 10-325 mg tablet 1 tab PO Q6H PRN (Reason: pain) Qty: 30 0RF losartan-hydrochlorothiazide 1 EACH tablet 1 ea PO DAILY simvastatin 20 MG tablet 20 mg PO DAILY montelukast [Singulair] 10 MG tablet 10 mg PO DAILY atenolol [Tenormin] 50 MG tablet 50 mg PO BID Discontinued ciprofloxacin HCl 500 mg tablet 500 mg PO BID Qty: 20 0RF Follow Up Plan Follow up with: Stanford Perez MD [Primary Care Provider] - (as needed.) Hoa Jones MD [Physician] - 03/24/22 9:30 am Patient Disposition: Home, Self-Care Prognosis: Good Rehab Potential: Good I certify that the patient requires SNF services: No Overall status at discharge: patient is progressing back to baseline Discharge Orders: Discharge Order (Routine); Ordered 03/06/22 Ordered By: Hoa Jones Pending Pending Pending: Resuscitation Status Resuscitate (Full Code) Diet GI Soft/Transitional Start ThuMar 05 09 Acetaminophen/Butalbital/Caffeine (Butalb/Acetaminophen/Caffeine 1 Tablet) 2 tab PO Q4HP PRN PRN Reason: Headache Last Admin: 03/06/22 11:59 Dose: 2 tab Documented By: Admin: 03/06/22 05:47 Dose: 2 tab Documented By: Admin: 03/04/22 20:44 Dose: 2 tab Documented By: Admin: 03/04/22 11:01 Dose: 2 tab Documented By: MAE Atenolol (Atenolol 50 Mg Tablet) 50 mg PO BID THADDEUS Last Admin: 03/06/22 09:40 Dose: 50 mg Documented By: Admin: 03/05/22 21:31 Dose: 50 mg Documented By: Admin: 03/05/22 13:45 Dose: 50 mg Documented By: Admin: 03/04/22 20:44 Dose: 50 mg Documented By: Admin: 03/04/22 09:50 Dose: 50 mg Documented By: Admin: 09/19/22 21:32 Dose: 50 mg Documented By: LALO Atenolol (Atenolol 50 Mg Tablet) 50 mg PO BID [facility] Admin: 03/06/22 10:09 Dose: Not Given Documented By: Admin: 03/05/22 21:32 Dose: Not Given Documented By: Admin: 03/05/22 14:02 Dose: Not Given Documented By: ROSALINO Citalopram Hydrobromide (Citalopram 20 Mg Tablet) 20 mg PO DAILY [facility] Last Admin: 03/06/22 09:40 Dose: 20 mg Documented By: Admin: 03/05/22 13:44 Dose: 20 mg Documented By: Admin: 03/04/22 09:50 Dose: 20 mg Documented By: LETTY Diphenhydramine HCl (Diphenhydramine 50 Mg/Ml Vial) 50 mg IV QHS [facility] Admin: 03/06/22 00:31 Dose: Not Given Documented By: Admin: 03/04/22 23:41 Dose: Not Given Documented By: Admin: 03/03/22 22:48 Dose: 50 mg Documented By: LALO Docusate Sodium (Docusate Sodium 100 Mg Capsule) 100 mg PO BID [facility] Admin: 03/06/22 09:40 Dose: 100 mg Documented By: Admin: 03/05/22 21:30 Dose: 100 mg Documented By: Admin: 03/05/22 13:43 Dose: 100 mg Documented By: Admin: 03/04/22 20:45 Dose: 100 mg Documented By: Admin: 03/04/22 09:50 Dose: 100 mg Documented By: LETTY Fexofenadine HCl (Fexofenadine 180 Mg Tablet) 180 mg PO QDAY [facility] Admin: 03/06/22 09:40 Dose: 180 mg Documented By: Admin: 03/05/22 13:43 Dose: 180 mg Documented By: ALEIDA Fluticasone Propionate (Fluticasone Propionate [place].Cj) 1 spray NS QDAY [facility] Admin: 03/06/22 10:15 Dose: Not Given Documented By: Admin: 03/05/22 14:02 Dose: Not Given Documented By: ROSALINO Hydrochlorothiazide (Hydrochlorothiazide 25 Mg Tablet) 25 mg PO DAILY [facility] Last Admin: 03/06/22 09:40 Dose: 25 mg Documented By: Admin: 03/05/22 13:44 Dose: 25 mg Documented By: ALEIDA Hydromorphone HCl (Hydromorphone 1 Mg/Ml Syringe) 1 mg IV Q2HP PRN; Protocol PRN Reason: Per Pain Protocol Last Admin: 03/05/22 23:06 Dose: 1 mg Documented By: Admin: 03/05/22 17:40 Dose: 1 mg Documented By: Admin: 03/05/22 12:28 Dose: 1 mg Documented By: Admin: 03/05/22 10:20 Dose: 1 mg Documented By: Admin: 03/04/22 14:14 Dose: 1 mg Documented By: Admin: 03/04/22 07:10 Dose: 1 mg Documented By: Admin: 03/03/22 23:30 Dose: 1 mg Documented By: Admin: 03/03/22 18:48 Dose: 1 mg Documented By: STEPHANIE Sodium Chloride (Sodium Chloride 0.9%) 1,000 mls @ 75 mls/hr IV .[id number] [facility] Admin: 03/06/22 10:16 Dose: Not Given Documented By: Admin: 03/06/22 01:38 Dose: Not Given Documented By: Infusion: 03/05/22 23:40 Dose: 0 mls/hr Documented By: Admin: 03/05/22 10:20 Dose: 75 mls/hr Documented By: Infusion: 03/05/22 10:20 Dose: 75 mls/hr Documented By: Admin: 03/04/22 23:41 Dose: 75 mls/hr Documented By: Infusion: 03/04/22 23:40 Dose: 75 mls/hr Documented By: Infusion: 03/04/22 11:20 Dose: 75 mls/hr Documented By: Infusion: 03/04/22 10:13 Dose: 0 mls/hr Documented By: Admin: 03/04/22 09:13 Dose: 75 mls/hr Documented By: Infusion: 03/04/22 08:16 Dose: 0 mls/hr Documented By: Admin: 03/04/22 07:53 Dose: Not Given Documented By: Admin: 03/03/22 17:48 Dose: 75 mls/hr Documented By: STEPHANIE Piperacillin Sod/Tazobactam (Sod 3.375 gm/ Dextrose) 50 mls @ 100 mls/hr IV Q6H [facility]; Protocol Last Infusion: 03/06/22 12:37 Dose: 0 mls/hr Documented By: Admin: 03/06/22 12:00 Dose: 100 mls/hr Documented By: Infusion: 03/06/22 06:18 Dose: 0 mls/hr Documented By: Admin: 03/06/22 05:48 Dose: 100 mls/hr Documented By: Infusion: 03/06/22 00:56 Dose: 0 mls/hr Documented By: Admin: 03/06/22 00:26 Dose: 100 mls/hr Documented By: Infusion: 03/05/22 19:12 Dose: 0 mls/hr Documented By: Admin: 03/05/22 18:42 Dose: 100 mls/hr Documented By: Infusion: 03/05/22 14:16 Dose: 0 mls/hr Documented By: Admin: 03/05/22 13:46 Dose: 100 mls/hr Documented By: Infusion: 03/05/22 06:30 Dose: 0 mls/hr Documented By: Admin: 03/05/22 05:43 Dose: 100 mls/hr Documented By: Infusion: 03/05/22 00:10 Dose: 0 mls/hr Documented By: Admin: 03/04/22 23:40 Dose: 100 mls/hr Documented By: Infusion: 03/04/22 18:09 Dose: 100 mls/hr Documented By: Admin: 03/04/22 17:07 Dose: 100 mls/hr Documented By: Infusion: 03/04/22 14:50 Dose: 0 mls/hr Documented By: Admin: 03/04/22 14:17 Dose: 100 mls/hr Documented By: Infusion: 03/04/22 06:24 Dose: 0 mls/hr Documented By: Admin: 03/04/22 05:40 Dose: 100 mls/hr Documented By: Infusion: 03/04/22 00:50 Dose: 0 mls/hr Documented By: Admin: 03/04/22 00:22 Dose: 100 mls/hr Documented By: Admin: 03/03/22 19:10 Dose: Not Given Documented By: STEPHANIE Latanoprost (Latanoprost Ophth Drops 2.5ml Bottle) 1 gtt OU BID [facility] Last Admin: 03/06/22 12:23 Dose: Not Given Documented By: Admin: 03/05/22 21:31 Dose: 1 gtt Documented By: Admin: 03/05/22 14:03 Dose: Not Given Documented By: ROSALINO Losartan Potassium (Losartan 50 Mg Tablet) 100 mg PO DAILY [facility] Last Admin: 03/06/22 09:40 Dose: 100 mg Documented By: Admin: 03/05/22 13:43 Dose: 100 mg Documented By: ALEIDA Montelukast Sodium (Montelukast 10 Mg Tablet) 10 mg PO DAILY [facility] Last Admin: 03/06/22 09:40 Dose: 10 mg Documented By: Admin: 03/05/22 13:43 Dose: 10 mg Documented By: ALEIDA Oxycodone/Acetaminophen (Oxycodone/Apap 10/325mg Tablet) 1 tab PO Q6HP PRN; Protocol PRN Reason: pain Last Admin: 03/05/22 17:39 Dose: 1 tab Documented By: NERI Rodriguez (Sennosides 1 Tablet) 2 tab PO HS [facility] Last Admin: 03/05/22 21:30 Dose: 2 tab Documented By: Admin: 03/04/22 20:45 Dose: 2 tab Documented By: MILENA Sodium Chloride (0.9 % Sodium Chloride 10 Ml Syringe) 10 ml IV Q8 [facility] Last Admin: 03/06/22 05:49 Dose: 10 ml Documented By: Admin: 03/06/22 00:32 Dose: 10 ml Documented By: Admin: 03/05/22 21:32 Dose: 10 ml Documented By: Admin: 03/05/22 14:07 Dose: Not Given Documented By: Admin: 03/05/22 05:43 Dose: Not Given Documented By: Admin: 03/04/22 20:36 Dose: Not Given Documented By: Admin: 03/04/22 14:19 Dose: 10 ml Documented By: MAE Timolol Maleate (Timolol 0.5% Ophth Drops Bottle 5ml) 1 gtt OU QDAY [facility] Last Admin: 03/06/22 12:22 Dose: 1 gtt Documented By: Admin: 03/05/22 14:03 Dose: Not Given Documented By: ROSALINO Shift Summary 03/06/22 03:59 Shift Summary by Jennifer Ho Primary Diagnosis: Belly pain & bloating Registration Status: 03/04 - M/S OBS Date of Surgery (if applicable): 03/05 - Laparoscopic Cholecystectomy Pertinent Medical Dx/Issue(s): cholelithiasis, arthritis, DJD, asthma, SHARRI - home CPAP @ BS, HTN, glaucoma, IBS, anxiety, depression Vital Signs with Trends: VSS on RA. CPAP on while sleeping. Neuro : A&OX4. NEZ PERCE. Right Hearing aid, reads lips. Ambulation : Independent, calls for supervision to BR Diet : GI soft. Denies nausea. Pain management (acute vs. chronic): Dilaudid 0.5mg IV given @ 2306 for abd pain. Lab/Rad (abnormals, trends): Urinary output greater than 30mL/hr? Yes, per toilet w/ hat. Date of last BM: None this shift. Lines/Tubes: SL RAC Skin / Wound : Lap sites X4 intact w/ trudy & tegaderm. BOB to RUQ putting out small amt sanguinous. Recommendations/questions for MD: Discharge Plan (needs, disposition, etc): To return home when medically cleared. Initialized on 03/06/22 03:59 - END OF NOTE
--- NOTE | 2022-03-07 07:46 | EKG ---
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
--- NOTE | 2022-03-31 14:29 | Operative Note ---
DATE OF OPERATION: 03/04/2022 DATE OF PROCEDURE: 03/05/2022 PREOPERATIVE DIAGNOSIS: Acute cholecystitis with cholelithiasis. POSTOPERATIVE DIAGNOSES: Acute cholecystitis with empyema and cholelithiasis. PROCEDURE: Laparoscopic cholecystectomy. SURGEON: Hoa Jones M.D. FINDINGS: Acute severe inflammation of the gallbladder with empyema and multiple stones of variable size and cystic duct obstruction. DESCRIPTION OF PROCEDURE: Under general anesthesia, the patient's abdomen was prepped and draped in a sterile field. Supraumbilical incision was made. Veress needle was inserted. The abdomen was insufflated with 2 liters of CO2. A 10 mm port was placed. Laparoscope was placed. Under videoscopic guidance, a 10 mm port and two 5 mm ports were placed in the right subcostal region. Gallbladder was grasped and positioned. The gallbladder was severely inflamed. It was decompressed with a Weck needle. It obtained clear watery bile and pus. Once it was decompressed, it was better positioned. Cystic duct and cystic artery branches were sequentially dissected and identified. Cystic duct was transected using the Endo TERRI stapler at its junction with the gallbladder. Cystic artery was clipped with four clips and divided. Gallbladder was from the infrahepatic bed using blunt dissection and electrocautery. There was a moderate amount of oozing of blood from the bed because of the severe inflammation. The gallbladder was placed in an EndoCatch device and retrieved. Irrigation was carried out. Hemostasis was achieved. Two large Surgicel gauzes were placed in the bed, and a Guicho drain was placed. It was brought out through the most lateral incision. CO2 was allowed to escape from the abdomen and the ports were removed. The fascia at the umbilicus was closed with 0 Vicryl. Skin incisions were closed with trudy. The drain was secured with 2-0 nylon. Tegaderm dressings were placed. The patient tolerated the procedure well. She was awakened, transferred to a bed, and taken to the postanesthetic care unit in satisfactory condition. LCS:rina Job ID: [id number] Doc ID: [id number] Hoa Jones M.D.
== END 2022-03-06 17:35 | disposition home or self-care (01) ==
LOC: ED 13:39 → MEDSUR 13:39
PROVIDERS: ADMIT Family Medicine Adult Medicine; ATTEND Family Medicine Adult Medicine